=== PATIENT | male | born 1985 | race Caucasian/White ===

== ENCOUNTER 2020-03-16 16:05 | Emergency (ER) | payer OTHER ==
[2020-03-16] MEDS ORDERED: IBUPROFEN 600 MG TABLET (FP) PO ONE (16:47)
[2020-03-16 17:37] VITALS: BP 151/96; PULSE 100; TEMP 97.8; BMI 35.9
== END 2020-03-16 17:40 | disposition home or self-care (01) ==
LOC: FER 16:05
DX: S69.91XA Unspecified injury of right wrist, hand and finger(s), initial encounter (principal)
CPT/HCPCS: 73130-TC-RT-FY; 99284-25

== ENCOUNTER 2020-04-09 11:21 | Emergency (ER) | payer OTHER, SELFPAY ==
[2020-04-09 11:41] VITALS: BP 144/93; PULSE 102; TEMP 99.5; BMI 35.9
== END 2020-04-09 11:46 | disposition home or self-care (01) ==
LOC: FER 11:21
DX: M54.5 Low back pain (principal)
CPT/HCPCS: 99282-25

== ENCOUNTER 2020-05-07 11:12 | Emergency (ER) | payer OTHER, SELFPAY ==
[2020-05-07 11:20] VITALS: BP 138/73; PULSE 76; TEMP 98.5; BMI 35.2
== END 2020-05-07 11:48 | disposition home or self-care (01) ==
LOC: FER 11:12
DX: S69.91XA Unspecified injury of right wrist, hand and finger(s), initial encounter (principal); Y04.1XXA Assault by human bite, initial encounter
CPT/HCPCS: 99282-25

== ENCOUNTER 2021-04-28 10:20 | Emergency (ER) | payer OTHER ==
[2021-04-28 10:26] VITALS: BP 148/86; PULSE 100; TEMP 99; BMI 35.9
[2021-04-28] MEDS ORDERED: IBUPROFEN 600 MG TABLET (FP) PO ONE ×2 (10:45→10:51)
== END 2021-04-28 12:11 | disposition home or self-care (01) ==
LOC: FER 10:20
DX: S49.91XA Unspecified injury of right shoulder and upper arm, initial encounter (principal); W22.09XA Striking against other stationary object, initial encounter; Y35.811A Legal intervention involving manhandling, law enforcement official injured, initial encounter
CPT/HCPCS: 73030-TC-RT-FY; 99283-25

== ENCOUNTER 2022-09-21 20:56 | Emergency (ER) | payer OTHER ==
[2022-09-21] MEDS ORDERED: FLUORESCEIN NA 1 EA STRIP ONE (21:04)
[2022-09-21] MEDS ORDERED: TETRACAINE 0.5% OPHTH SOLN 2 ML BOTTLE ONE (21:04)
[2022-09-21 21:10] VITALS: BP 162/84; PULSE 82; RESP 16; TEMP 98; BMI 36.7
[2022-09-21] MEDS ORDERED: TOBRA 0.3%/DEXAMETH 0.1% OPHTHALMIC SUSP 2.5 ML BTL OS STA (21:16)
[2022-09-21] MEDS ORDERED: TOBRA 0.3%/DEXAMETH 0.1% OPHTHALMIC SUSP 2.5 ML BTL ONE (21:16)
== END 2022-09-21 21:28 | disposition home or self-care (01) ==
LOC: FER 20:56
DX: T15.92XA Foreign body on external eye, part unspecified, left eye, initial encounter (principal)
CPT/HCPCS: 99283-25

== ENCOUNTER 2023-01-31 07:19 | Emergency (ER) | payer OTHER ==
[2023-01-31 07:28] VITALS: BP 135/89; PULSE 89; RESP 18; BMI 36.6
[2023-01-31 07:29] VITALS: TEMP 98
[2023-01-31 08:38] LABS: EOS % 2.8 % (0-4.5); HEMATOCRIT 47.3 % (35.4-49); HEMOGLOBIN 15.3 GM/dL (11.7-16.9); LYMPH % 52.3 % (8-40); MCH 25.9 pg (25.7-33.7); MCHC 32.4 g/dl (32.0-35.9); MEAN CELL VOLUME 80.2 fl (80-96); MEAN PLT VOLUME 6.9 fl (7.5-11.1); NEUT % 30.9 % (42.8-82.8); PLATELET COUNT 232 10^3/uL (134-434); RBC 5.91 M/mm3 (4.00-5.60); RDW 13.9 % (11.9-15.9); WHITE BLOOD COUNT 4.2 K/mm3 (4.0-10.0)
[2023-01-31 08:54] LABS: POTASSIUM 3.7 mmol/L (3.5-5.1)
[2023-01-31 08:57] LABS: ALBUMIN 4.3 g/dl (3.4-5.0); BLOOD UREA NITROGEN 15.4 mg/dL (7-18); CALCIUM 8.9 mg/dL (8.5-10.1)
[2023-01-31 08:59] LABS: CREATININE 0.9 mg/dL (0.55-1.3)
[2023-01-31 09:02] LABS: BILIRUBIN,TOTAL 0.4 mg/dL (0.2-1); TOT PROT 7.6 g/dl (6.4-8.2)
== END 2023-01-31 10:04 | disposition home or self-care (01) ==
LOC: JER 07:19
DX: R07.89 Other chest pain (principal)
CPT/HCPCS: 36415; 71046-TC-FY; 80053; 84484; 85025; 93005; 93010; 99285-25